=== PATIENT | female | born 1950 | race Caucasian/White ===

== ENCOUNTER 2020-12-25 13:22 | Outpatient (CLI) | payer BC ==
[~2020-12-25 13:22] MED LIST: Iopamidol-370 76% 500 ML 1 ML ONE
== END 2020-12-25 13:23 | disposition home or self-care (01) ==
LOC: BICCT 13:22
PROVIDERS: ATTEND Ophthalmology
DX: H04.552 Acquired stenosis of left nasolacrimal duct (principal)
CPT/HCPCS: 70481; 82565; Q9967